=== PATIENT | female | born 2000 | race Caucasian/White ===

== ENCOUNTER 2018-06-25 20:05 | Emergency (ER) | payer BC ==
[~2018-06-25] VITALS: Ht 157.5 cm; Wt 59.1 kg
[2018-06-25 20:19] VITALS: TEMP 37.1; Ht 157.5 cm; Wt 59.1 kg
[2018-06-25 21:13] LABS: HEMATOCRIT 42.8 % (37-47); HEMOGLOBIN 14.7 g/dL (12.0-16.0); MEAN CELL VOLUME 90.5 fL (80-100); MEAN CORPUSCULAR HEMOGLOBIN 31.1 pg (25-34); MEAN CORPUSCULAR HGB CONC 34.3 g/dl (32-36); MEAN PLATELET VOLUME 9.8 fL (7.4-10.4); PLATELET COUNT 316 K/uL (130-400); RED CELL DISTRIBUTION WIDTH CV 11.7 % (11.5-14.5); RED CELL DISTRIBUTION WIDTH SD 38.9 fL (36.4-46.3); WHITE BLOOD COUNT 12.72 K/uL (4.8-10.8)
[2018-06-25 21:25] LABS: INR 0.9 (0.9-1.1); PTT PATIENT 24.7 SECONDS (21.0-31.0)
[2018-06-25 21:31] LABS: ALBUMIN 3.9 gm/dl (3.4-5.0); ALKALINE PHOSPHATASE 86 U/L (45-117); ALT/SGPT 16 U/L (12-78); AST/SGOT 10 U/L (15-37); BLOOD UREA NITROGEN 10 mg/dl (7-18); CALCIUM 9.3 mg/dl (8.5-10.1); CARBON DIOXIDE 23 mmol/L (21-32); CKMB < 1.0 ng/ml (0.5-3.6); CREATININE 0.85 mg/dl (0.60-1.20); GLUCOSE 112 mg/dl (70-99); POTASSIUM 3.6 mmol/L (3.5-5.1); SODIUM 138 mmol/L (136-145); TOTAL PROTEIN 8.4 gm/dl (6.4-8.2)
[2018-06-25] MEDS ORDERED: MEDR150I IM (21:32)
--- NOTE | 2018-06-25 21:32 | DIAGNOSTIC IMAGING REPORT ---
CHEST ONE VIEW PORTABLE CLINICAL HISTORY: 17 years-old Female presenting with chest pain and sob, difficulty swallowing, stomach cramps. TECHNIQUE: Portable upright AP view of the chest was obtained. COMPARISON: None. FINDINGS: Cardiomediastinal silhouette normal. Lungs and pleural spaces clear. S-shaped scoliotic curvature of the thoracic spine. Cholecystectomy clips noted. IMPRESSION: 1. No acute cardiopulmonary disease. Electronically signed by: Bryson Hancock M.D. 06/25/2018 9:30 PM Dictated Date/Time: 06/25/2018 9:29 PM
[2018-06-25] MEDS ORDERED: KETOROLAC TROMETHAMINE 30 MG/ML VIAL IV STA (21:46)
[2018-06-25] MEDS ORDERED: SODIUM CHLORIDE 0.9% 1000ML 2,000 ML IV STA (21:46)
[2018-06-25] MEDS ORDERED: OPTIRAY 320 IV PRN (22:15)
--- NOTE | 2018-06-25 22:41 | DIAGNOSTIC IMAGING REPORT ---
SOFT TISSUE NECK WITH CLINICAL HISTORY: 17 years-old Female presenting with trouble swallowing . TECHNIQUE: Multidetector CT of the neck was performed after the administration of intravenous contrast. IV contrast: 92 mL of Optiray 320. A dose lowering technique was used consistent with the principles of ALARA (as low as reasonably achievable). COMPARISON: None. CT DOSE (mGy.cm): The estimated cumulative dose is 368.45 mGy.cm. FINDINGS: Turning [employer]ender topogram: Scoliotic curvature of the spine. Cholecystectomy clips. Mild mucosal hyperenhancement of the nasopharynx suggested. Effacement of the nasopharynx may represent hypertrophy of adenoidal lymphoid tissue. The airway is patent below this level. Slight hypertrophy of the lymphoid tissue at the base of the tongue. No infiltration of the pharyngeal or retropharyngeal regions. No abscess. No lymphadenopathy. Parotid, submandibular, and thyroid glands normal. Opacification of the left sphenoid sinus. No osseous erosion or osteosclerosis. Mastoid air cells clear. Remainder of the visualized paranasal sinuses clear. Visualized portion of the orbits normal. Teeth intact. No evidence of an odontoid or periodontal disease. Cervical spine normal. Skull base intact. Lung apices clear. Vasculature patent. IMPRESSION: 1. Mucosal hyperenhancement of the nasopharynx with relative effacement of the nasopharynx suggests mild inflammatory change and lymphoid hyperplasia. No evidence of a retropharyngeal abscess or deep inflammation. No lymphadenopathy. 2. Opacification of the left sphenoid sinus. This is nonspecific. Correlate clinically to exclude acute sinusitis. Electronically signed by: Bryson Hancock M.D. 06/25/2018 10:40 PM Dictated Date/Time: 06/25/2018 10:34 PM
[2018-06-26 01:02] VITALS: BP 111/65; PULSE 87; O2SAT 99
--- NOTE | 2018-06-26 01:25 | EMERGENCY ROOM VISIT NOTE ---
History Report prepared by Sancho: Hyacinth Padron Under the Supervision of: Dr. Filiberto Lezama D.O. First contact with patient: 21:31 Chief Complaint: CHEST PAIN Stated Complaint: CHEST PAINS,STOMACH CRAMPS,DIFFICULTY SWALLOWING Nursing Triage Summary: patient states since last night she has had fluttering feeling in her chest along with feeling chest discomfort. states she has hx of thyroid issues and feels like she is dehydrated from trouble swallowing due to thyroid. History of Present Illness The patient is a 17 year old female who presents to the Emergency Room with complaints of intermittent chest pain and fluttering that began last night while the patient was sleeping. She states that she woke up to this pain and fluttering and then went back to sleep and still woke up with them in the morning. She states that she still has these pains currently. She does feels that she is dehydrated. She notes she has trouble swallowing and did go to the PCP was diagnosed with some thyroid issues. She notes that it does hurt to swallow. She admits to a slight cough. She does have some abdominal cramps. Currently having her menstrual cycle. She has no other complaints. There are no other exacerbating or remitting factors. Patient denies diabetes, hypertension, hyperlipidemia, CAD, history of sudden at a young age, and smoking. Patient denies swelling of calves, recent trips, history of immobilization or recent surgery, prior history of DVT, hemoptysis, history of malignancy, or control/estrogen use. Source of History: patient Onset: last night Position: chest Quality: other (fluttering) Timing: intermittent Associated Symptoms: + cough Note: additional symptoms: difficulty swallowing and dehydration Review of Systems See HPI for pertinent positives & negatives. A total of 10 systems reviewed and were otherwise negative. Social History Smoking Status: Never Smoker Current/Historical Medications Scheduled Medroxyprogesterone Acetate (C (Depo-Provera Contraceptiv), 150 MG IM UD Allergies Coded Allergies: Amoxicillin (Verified Allergy, Intermediate, Hives, 06/25/18) Sulfamethoxazole w/Trimethoprim (Verified Allergy, Intermediate, Hives, ) Physical Exam Vital Signs Date Time Temp Pulse Resp B/P (MAP) Pulse Ox O2 Delivery O2 Flow Rate FiO2 06/26/18 01:02 87 18 111/65 99 06/26/18 00:04 80 06/26/18 00:02 87 18 102/65 97 Room Air 06/25/18 22:07 88 16 129/86 100 Room Air 06/25/18 20:34 106 06/25/18 20:19 37.1 108 20 110/72 98 Room Air Physical Exam GENERAL: Sitting up in bed, alert, well appearing, well nourished, no distress, non-toxic EYE EXAM: normal conjunctiva. OROPHARYNX: no exudate, no erythema, lips, buccal mucosa, and tongue normal and mucous membranes are moist NECK: supple, no nuchal rigidity, no adenopathy, non-tender LUNGS: Clear to auscultation. Normal chest wall mechanics HEART: no murmurs, S1 normal and S2 normal ABDOMEN: abdomen soft, non-tender, normo-active bowel sounds, no masses, no rebound or guarding. BACK: Back is symmetrical on inspection and there is no deformity, no midline tenderness, no CVA tenderness. SKIN: no rashes and no bruising UPPER EXTREMITIES: upper extremities are grossly normal. Radial pulse equal bilateral LOWER EXTREMITIES: No pitting edema. Calves are equal bilateral NEURO EXAM: Normal sensorium, cranial nerves II-XII grossly intact, normal speech, no gross weakness of arms, no gross weakness of legs. Medical Decision & Procedures ER Provider Diagnostic Interpretation: Radiology results as stated below per my review and the radiologist's interpretation: CHEST ONE VIEW PORTABLE CLINICAL HISTORY: 17 years-old Female presenting with chest pain and sob, difficulty swallowing, stomach cramps. TECHNIQUE: Portable upright AP view of the chest was obtained. COMPARISON: None. FINDINGS: Cardiomediastinal silhouette normal. Lungs and pleural spaces clear. S-shaped scoliotic curvature of the thoracic spine. Cholecystectomy clips noted. IMPRESSION: 1. No acute cardiopulmonary disease. Electronically signed by: Bryson Hancock M.D. 06/25/2018 9:30 PM Dictated Date/Time: 06/25/2018 9:29 PM SOFT TISSUE NECK WITH CLINICAL HISTORY: 17 years-old Female presenting with trouble swallowing . TECHNIQUE: Multidetector CT of the neck was performed after the administration of intravenous contrast. IV contrast: 92 mL of Optiray 320. A dose lowering technique was used consistent with the principles of ALARA (as low as reasonably achievable). COMPARISON: None. CT DOSE (mGy.cm): The estimated cumulative dose is 368.45 mGy.cm. FINDINGS: [employer] topogram: Scoliotic curvature of the spine. Cholecystectomy clips. Mild mucosal hyperenhancement of the nasopharynx suggested. Effacement of the nasopharynx may represent hypertrophy of adenoidal lymphoid tissue. The airway is patent below this level. Slight hypertrophy of the lymphoid tissue at the base of the tongue. No infiltration of the pharyngeal or retropharyngeal regions. No abscess. No lymphadenopathy. Parotid, submandibular, and thyroid glands normal. Opacification of the left sphenoid sinus. No osseous erosion or osteosclerosis. Mastoid air cells clear. Remainder of the visualized paranasal sinuses clear. Visualized portion of the orbits normal. Teeth intact. No evidence of an odontoid or periodontal disease. Cervical spine normal. Skull base intact. Lung apices clear. Vasculature patent. IMPRESSION: 1. Mucosal hyperenhancement of the nasopharynx with relative effacement of the nasopharynx suggests mild inflammatory change and lymphoid hyperplasia. No evidence of a retropharyngeal abscess or deep inflammation. No lymphadenopathy. 2. Opacification of the left sphenoid sinus. This is nonspecific. Correlate clinically to exclude acute sinusitis. Electronically signed by: Bryson Hancock M.D. 06/25/2018 10:40 PM Dictated Date/Time: 06/25/2018 10:34 PM Laboratory Results 06/25/18 20:38 06/25/18 20:38 Test 06/25/18 20:38 06/25/18 20:56 06/25/18 23:24 Red Blood Count 4.73 M/uL (4.2-5.4) Mean Corpuscular Volume 90.5 fL (80-100) Mean Corpuscular Hemoglobin 31.1 pg (25-34) Mean Corpuscular Hemoglobin Concent 34.3 g/dl (32-36) RDW Standard Deviation 38.9 fL (36.4-46.3) RDW Coefficient of Variation 11.7 % (11.5-14.5) Mean Platelet Volume 9.8 fL (7.4-10.4) Prothrombin Time 9.8 SECONDS (9.0-12.0) Prothromb Time International Ratio 0.9 (0.9-1.1) Activated Partial Thromboplast Time 24.7 SECONDS (21.0-31.0) Partial Thromboplastin Ratio 1.0 D-Dimer 300 ug/L FEU (0-500) Anion Gap 10.0 mmol/L (3-11) Est Creatinine Clear Calc Drug Dose 84.2 ml/min Estimated GFR () 115.1 Estimated GFR (Non- 99.3 BUN/Creatinine Ratio 12.0 (10-20) Calcium Level 9.3 mg/dl (8.5-10.1) Total Bilirubin 0.3 mg/dl (0.2-1) Aspartate Amino Transf (AST/SGOT) 10 U/L (15-37) Alanine Aminotransferase (ALT/SGPT) 16 U/L (12-78) Alkaline Phosphatase 86 U/L (45-117) Total Creatine Kinase 75 U/L (26-192) Creatine Kinase MB < 1.0 ng/ml (0.5-3.6) Creatine Kinase MB Ratio (0-3.0) Total Protein 8.4 gm/dl (6.4-8.2) Albumin 3.9 gm/dl (3.4-5.0) Globulin 4.4 gm/dl (2.5-4.0) Albumin/Globulin Ratio 0.9 (0.9-2) Chemistry Specimen Hemolysis Bedside Troponin I < 0.030 ng/ml (0-0.045) Troponin I < 0.015 ng/ml (0-0.045) Thyroid Stimulating Hormone (TSH) 1.070 uIu/ml (0.300-4.500) Laboratory results per my review. Medications Administered Medications (Trade) Dose Ordered Sig/Aletha Route Start Time Stop Time Status Last Admin Dose Admin Sodium Chloride 2,000 ml @ 999 mls/hr Q2H1M STAT IV 06/25/18 21:46 06/25/18 23:46 DC 06/25/18 22:09 999 MLS/HR Ketorolac Tromethamine (Toradol Inj) 30 mg NOW STAT IV 06/25/18 21:46 06/25/18 21:48 DC 06/25/18 22:09 30 MG ECG Per My Interpretation Indication: chest pain Rate (beats per minute): 89 Rhythm: sinus rhythm Findings: other (normal axis, nonspecific ST wave changes in the inferior leads ) Comparison ECG Date: no prior available Change: Repeat ECG: Sinus rhythm of [address] wave changes in the inferior leads. No PVCs. ED Course ED COURSE: Vital signs were reviewed and showed tachycardia The patients medical record was reviewed The above diagnostic studies were performed and reviewed. ED treatments and interventions as stated above. 2148: The patient was evaluated in room B9. A complete history and physical examination was performed. 0044: I discussed the case with Dr. Barbour and he recommends following up with the patient's PCP. 0047: Upon reevaluation, the patient is doing better. I discussed my findings with the patient and she understands and agrees with the treatment plan. Based on the patients age, coexisting illnesses, exam and lab findings the decision to treat as an outpatient was made. The patient remained stable while under my care. The patient appeared well at the time of discharge. Medical Decision Differential diagnoses includes but is not limited to acute coronary syndrome, myocardial infarction, pericarditis, pulmonary embolus, aortic dissection, pneumonia, pneumothorax, musculoskeletal, shingles, esophageal. Patient is a 17-year-old female who presents the ER for fluttering and chest pain which is been present since last night. She also admits that she has some trouble swallowing. Labs were obtained and CBC along with BMP, LFTs, bilirubin and troponins 2 were negative. Troponin was negative with pain greater than 8 hours. TSH was normal. D-dimer was negative. Chest x-ray unremarkable. EKG did show some mild ST depressions in the inferior's which did improve on repeat. With these findings she has no cardiac risk factors and is a low risk for PE. I did discuss with cardiology. They recommend following up with PCP as this is not cardiac. Her chest pain and palpitations do not change with position which makes pericarditis very unlikely. Nothing to suggest myocarditis. No aortic issues. She is updated bedside discharge follow-up PCP as an outpatient. Discussed with Pt concerning signs and symptoms to watch out for. Pt was instructed to follow up with their PCP and discussed with the patient their option to return to the ED at anytime for persistent or worsening symptoms. The appropriate anticipatory guidance and out-patient management, including indications for return to the emergency department, were explained at length to the patient and understood. Medication Reconcilliation Current Medication List: was personally reviewed by me Blood Pressure Screening Patient's blood pressure: Normal blood pressure Consults Time Called: 33 Consulting Physician: Dr. Barbour Returned Call: [phone] I discussed the case with Dr. Obando-Cardiology. He recommends that the patient follows up with the PCP. Impression Primary Impression: Chest pain Scribe Attestation The scribe's documentation has been prepared under my direction and personally reviewed by me in its entirety. I confirm that the note above accurately reflects all work, treatment, procedures, and medical decision making performed by me. Departure Information Dispostion Home / Self-Care Referrals Tamara Gann C.R.N.P. (PCP) Forms HOME CARE DOCUMENTATION FORM, IMPORTANT VISIT INFORMATION Patient Instructions [facility] Additional Instructions Please follow up with your primary care doctor with in the next 24 hours. Any worsening of your symptoms, please return to the ED immediately. This includes any fevers greater than 100.4, worsening pain, chest pain, shortness breath, persistent nausea, vomiting, unable to eat or drink, or any other concerning signs or symptoms from your standpoint. Please make sure that you follow-up with your PCP as an outpatient. Problem Qualifiers Primary Impression: Chest pain Chest pain type: unspecified Qualified Codes: R07.9 - Chest pain, unspecified
== END 2018-06-26 01:03 | disposition home or self-care (01) ==
LOC: C.EDB 20:06
DX: R07.9 Chest pain, unspecified (principal); Z88.1 Allergy status to other antibiotic agents; Z88.2 Allergy status to sulfonamides